=== PATIENT | female | born 1990 ===

== ENCOUNTER 2024-11-02 02:55 | Emergency (ER) | payer OTHER ==
[~2024-11-02] VITALS: Ht 162.6 cm; Wt 76.2 kg
== END 2024-11-02 05:25 | disposition home or self-care (01) ==
LOC: ER 02:55
DX: Z33.1 Pregnant state, incidental (principal); Z3A.24 24 weeks gestation of pregnancy; S39.83XA Other specified injuries of pelvis, initial encounter; V49.9XXA Car occupant (driver) (passenger) injured in unspecified traffic accident, initial encounter; Y93.89 Activity, other specified; Y92.89 Other specified places as the place of occurrence of the external cause; Y99.8 Other external cause status; R10.2 Pelvic and perineal pain